=== PATIENT | female | born 1965 | race Two or more races ===

== ENCOUNTER → 2022-12-18 | Outpatient (CLI) | payer BC ==
[~2022-12-18] VITALS: Ht 162.6 cm; Wt 79.8 kg
[~2022-12-18] MED LIST: ADENOSINE 67 MG in GIVE UN-DILUTED 0 ML IV ONE
[2022-12-18 11:21] VITALS: BP 114/62
== END | disposition home or self-care (01) ==
LOC: XYW 09:30
PROVIDERS: ATTEND Internal Medicine
DX: R07.89 Other chest pain (principal); R06.02 Shortness of breath; R00.2 Palpitations; J44.9 Chronic obstructive pulmonary disease, unspecified; I10 Essential (primary) hypertension; E11.9 Type 2 diabetes mellitus without complications; R63.8 Other symptoms and signs concerning food and fluid intake; M81.0 Age-related osteoporosis without current pathological fracture; Z68.31 Body mass index [BMI] 31.0-31.9, adult
CPT/HCPCS: 78452; 93017; A9500; J0153